=== PATIENT | female | born 1985 | race Asian ===

== ENCOUNTER 2018-04-27 23:43 | Emergency (ER) | payer SELFPAY, OTHER | END 2018-04-28 03:02 | disposition left against medical advice (07) | LOC: FTE 23:43 | DX: Z53.21 Procedure and treatment not carried out due to patient leaving prior to being seen by health care provider (principal) ==

== ENCOUNTER 2018-05-10 15:12 | Outpatient (CLI) | payer OTHER | END 2018-05-10 16:45 | disposition home or self-care (01) | LOC: OBT 15:12 → L-D 15:13 → OBT 16:45 | DX: O26.892 Other specified pregnancy related conditions, second trimester (principal); R10.2 Pelvic and perineal pain; O13.3 Gestational [pregnancy-induced] hypertension without significant proteinuria, third trimester; Z3A.21 21 weeks gestation of pregnancy ==

== ENCOUNTER 2018-07-09 15:58 | Outpatient (CLI) | payer OTHER ==
[2018-07-09 16:27] LABS: ADD MAN DIFF? NO
[2018-07-09 16:30] LABS: WHITE BLOOD COUNT 7.5 10^3/ul (4.8-10.8)
[2018-07-09 16:30] LABS: BASOPHILS % 0.4 % (0.0-2.0); EOSINOPHILS # 0.1 10^3/ul (0.0-0.5); EOSINOPHILS % 1.5 % (0.0-7.0); HEMATOCRIT 34.2 % (37.0-47.0); HEMOGLOBIN 11.4 g/dl (12.0-16.0); LYMPHOCYTES % 13.3 % (15.0-51.0); MEAN CORPUSCULAR HEMOGLOBIN 29.8 pg (29.0-33.0); MEAN CORPUSCULAR HGB CONC 33.3 g/dl (32.0-37.0); MEAN CORPUSCULAR VOLUME 89.3 fl (82.0-101.0); MONOCYTE # 0.6 10^3/ul (0.3-0.9); MONOCYTES % 7.4 % (0.0-11.0); NEUTROPHIL # 5.8 10^3/ul (1.6-7.5); NEUTROPHILS % 76.9 % (39.0-77.0); PLATELET COUNT 212 10^3/UL (140-415); RED BLOOD COUNT 3.83 10^6/ul (4.20-5.40); RED CELL DISTRIBUTION WIDTH 13.7 % (11.5-14.5)
[2018-07-09 16:38] LABS: ADD UMIC NO; UR ASCORBIC ACID NEGATIVE (NEGATIVE); UR BACTERIA FEW /HPF (NONE SEEN); UR BILIRUBIN (Dip) NEGATIVE (NEGATIVE); UR BLOOD (Dip) NEGATIVE (NEGATIVE); UR CLARITY SLIGHTLY CLOUDY (CLEAR); UR COLOR YELLOW (YELLOW); UR GLUCOSE (Dip) NEGATIVE (NEGATIVE); UR KETONES (Dip) NEGATIVE (NEGATIVE); UR LEUKOCYTE ESTERASE (Dip) NEGATIVE Leu/ul (NEGATIVE); UR NITRITE (Dip) NEGATIVE (NEGATIVE); UR RBC 0 /HPF (0-5); UR SPECIFIC GRAVITY (Dip) 1.005 (1.003-1.030); UR SQUAMOUS EPITHELIAL CELL FEW /HPF (FEW); UR TOTAL PROTEIN (Dip) NEGATIVE (NEGATIVE); UR UROBILINOGEN (Dip) NEGATIVE (NEGATIVE); UR WBC 2 /HPF (0-5)
[2018-07-09 16:48] LABS: ALANINE AMINOTRANSFERASE 95 IU/L (13-69); ALBUMIN/GLOBULIN RATIO 1.08; ALKALINE PHOSPHATASE 89 IU/L (42-121); ANION GAP 13 (5-13); ASPARTATE AMINO TRANSFERASE 63 IU/L (15-46); BILIRUBIN,INDIRECT 0.2 mg/dl (0-1.1); BILIRUBIN,TOTAL 0.2 mg/dl (0.2-1.3); BLOOD UREA NITROGEN 7 mg/dl (7-20); CALCIUM 9.1 mg/dl (8.4-10.2); CARBON DIOXIDE 25 mmol/L (21-31); CHLORIDE 103 mmol/L (97-110); CREATININE 0.42 mg/dl (0.44-1.00); Estimated GFR > 60 mL/min (>60); GLUCOSE 84 mg/dl (70-220); POTASSIUM 3.4 mmol/L (3.5-5.1); SODIUM 141 mmol/L (135-144); TOTAL PROTEIN 7.7 g/dl (6.1-8.1)
[2018-07-09 17:06] LABS: INR 0.89; PROTIME 12.2 Sec (11.9-14.9)
[2018-07-09 17:07] LABS: PARTIAL THROMBOPLASTIN TIME 26.4 Sec (23.0-35.0)
== END 2018-07-09 17:29 | disposition home or self-care (01) ==
LOC: OBT 15:58 → L-D 15:59 → OBT 17:29
DX: O13.3 Gestational [pregnancy-induced] hypertension without significant proteinuria, third trimester (principal); Z3A.29 29 weeks gestation of pregnancy
CPT/HCPCS: 76818; 80053; 81001; 81003; 84560; 85025; 85610; 85730

== ENCOUNTER 2018-07-10 15:50 | Outpatient (CLI) | payer OTHER ==
[2018-07-10 17:38] LABS: ADD MAN DIFF? NO
[2018-07-10 17:39] LABS: WHITE BLOOD COUNT 8.7 10^3/ul (4.8-10.8)
[2018-07-10 17:39] LABS: BASOPHILS % 0.2 % (0.0-2.0); EOSINOPHILS % 0.2 % (0.0-7.0); HEMATOCRIT 33.9 % (37.0-47.0); HEMOGLOBIN 11.6 g/dl (12.0-16.0); LYMPHOCYTES # 1.1 10^3/ul (0.8-2.9); MEAN CORPUSCULAR HEMOGLOBIN 30.1 pg (29.0-33.0); MEAN CORPUSCULAR HGB CONC 34.2 g/dl (32.0-37.0); MEAN CORPUSCULAR VOLUME 88.1 fl (82.0-101.0); MEAN PLATELET VOLUME 11.8 fl (7.4-10.4); MONOCYTE # 0.6 10^3/ul (0.3-0.9); MONOCYTES % 6.5 % (0.0-11.0); NEUTROPHILS % 80.4 % (39.0-77.0); PLATELET COUNT 216 10^3/UL (140-415); RED BLOOD COUNT 3.85 10^6/ul (4.20-5.40); RED CELL DISTRIBUTION WIDTH 13.7 % (11.5-14.5)
[2018-07-10] MEDS: ACETAMINOPHEN 500 MG TAB PO (17:40)
[2018-07-10 18:02] LABS: ALANINE AMINOTRANSFERASE 125 IU/L (13-69); ALBUMIN/GLOBULIN RATIO 1.14; ALKALINE PHOSPHATASE 89 IU/L (42-121); ANION GAP 10 (5-13); ASPARTATE AMINO TRANSFERASE 84 IU/L (15-46); BILIRUBIN,INDIRECT 0.2 mg/dl (0-1.1); BILIRUBIN,TOTAL 0.2 mg/dl (0.2-1.3); BLOOD UREA NITROGEN 5 mg/dl (7-20); CALCIUM 9.8 mg/dl (8.4-10.2); CARBON DIOXIDE 25 mmol/L (21-31); CHLORIDE 103 mmol/L (97-110); CREATININE 0.42 mg/dl (0.44-1.00); Estimated GFR > 60 mL/min (>60); GLUCOSE 85 mg/dl (70-220); POTASSIUM 3.1 mmol/L (3.5-5.1); SODIUM 138 mmol/L (135-144); TOTAL PROTEIN 7.5 g/dl (6.1-8.1); URIC ACID 3.1 mg/dl (3.1-7.9)
[2018-07-10 19:31] LABS: COLLECTION PERIOD 24 hrs
[2018-07-10 20:33] LABS: COLLECTION PERIOD 24 hrs; CREATININE CLEARANCE 124.4 mls/min (84.0-162.0); CREATININE,URINE RANDOM 16.35 mg/dl (20-320); SCRET 0.42 mg/dl (0.44-1.00); VOLUME 4600 ml/24hrs; VOLUME 4600 mls
[2018-07-10 20:34] LABS: 24HR URINE TOTAL PROTEIN > 600.0 mg/24hrs (42.0-225.0)
[2018-07-10] MEDS: BETAMET NA PHOS/AC(6 MG/ML) 2 ML INJ SYG IM (22:49)
== END 2018-07-10 22:50 | disposition home or self-care (01) ==
LOC: OBT 15:50 → L-D 15:51 → OBT 18:20 → L-D 18:20 → OBT 22:50
DX: O13.3 Gestational [pregnancy-induced] hypertension without significant proteinuria, third trimester (principal); Z3A.29 29 weeks gestation of pregnancy
CPT/HCPCS: 76818; 80053; 82575; 84156; 84560; 85025; 96372

== ENCOUNTER 2018-07-11 21:43 | Outpatient (CLI) | payer OTHER ==
[2018-07-11] MEDS: BETAMET NA PHOS/AC(6 MG/ML) 2 ML INJ SYG IM (22:15)
[2018-07-11 22:58] LABS: ADD MAN DIFF? NO
[2018-07-11 23:02] LABS: BASOPHILS % 0.2 % (0.0-2.0); EOSINOPHILS % 0.1 % (0.0-7.0); HEMATOCRIT 33.2 % (37.0-47.0); HEMOGLOBIN 11.3 g/dl (12.0-16.0); LYMPHOCYTES # 1.4 10^3/ul (0.8-2.9); LYMPHOCYTES % 10.8 % (15.0-51.0); MEAN CORPUSCULAR HEMOGLOBIN 29.8 pg (29.0-33.0); MEAN CORPUSCULAR VOLUME 87.6 fl (82.0-101.0); MEAN PLATELET VOLUME 11.5 fl (7.4-10.4); MONOCYTE # 0.8 10^3/ul (0.3-0.9); MONOCYTES % 5.8 % (0.0-11.0); NEUTROPHIL # 10.6 10^3/ul (1.6-7.5); NEUTROPHILS % 82.3 % (39.0-77.0); PLATELET COUNT 233 10^3/UL (140-415); RED BLOOD COUNT 3.79 10^6/ul (4.20-5.40); RED CELL DISTRIBUTION WIDTH 13.7 % (11.5-14.5)
[2018-07-11 23:02] LABS: WHITE BLOOD COUNT 12.9 10^3/ul (4.8-10.8)
[2018-07-11 23:12] LABS: ADD UMIC NO; UR ASCORBIC ACID NEGATIVE (NEGATIVE); UR BILIRUBIN (Dip) NEGATIVE (NEGATIVE); UR BLOOD (Dip) NEGATIVE (NEGATIVE); UR CLARITY CLEAR (CLEAR); UR COLOR STRAW (YELLOW); UR GLUCOSE (Dip) NEGATIVE (NEGATIVE); UR KETONES (Dip) NEGATIVE (NEGATIVE); UR LEUKOCYTE ESTERASE (Dip) NEGATIVE Leu/ul (NEGATIVE); UR NITRITE (Dip) NEGATIVE (NEGATIVE); UR SPECIFIC GRAVITY (Dip) 1.003 (1.003-1.030); UR TOTAL PROTEIN (Dip) NEGATIVE (NEGATIVE); UR UROBILINOGEN (Dip) NEGATIVE (NEGATIVE)
[2018-07-11 23:24] LABS: INR 0.93; PARTIAL THROMBOPLASTIN TIME 24.7 Sec (23.0-35.0); PROTIME 12.6 Sec (11.9-14.9)
[2018-07-11 23:30] LABS: ALANINE AMINOTRANSFERASE 183 IU/L (13-69); ALBUMIN 3.9 g/dl (3.3-4.9); ALBUMIN/GLOBULIN RATIO 1.14; ALKALINE PHOSPHATASE 97 IU/L (42-121); ANION GAP 8 (5-13); ASPARTATE AMINO TRANSFERASE 108 IU/L (15-46); BILIRUBIN,INDIRECT 0.3 mg/dl (0-1.1); BILIRUBIN,TOTAL 0.3 mg/dl (0.2-1.3); BLOOD UREA NITROGEN 5 mg/dl (7-20); CALCIUM 9.4 mg/dl (8.4-10.2); CARBON DIOXIDE 26 mmol/L (21-31); CHLORIDE 103 mmol/L (97-110); CREATININE 0.39 mg/dl (0.44-1.00); Estimated GFR > 60 mL/min (>60); GLUCOSE 106 mg/dl (70-220); POTASSIUM 3.1 mmol/L (3.5-5.1); SODIUM 137 mmol/L (135-144); TOTAL PROTEIN 7.3 g/dl (6.1-8.1); URIC ACID 3.3 mg/dl (3.1-7.9)
== END 2018-07-12 00:27 | disposition left against medical advice (07) ==
LOC: OBT 07-12 00:27 → L-D 21:43
DX: Z53.21 Procedure and treatment not carried out due to patient leaving prior to being seen by health care provider (principal)
CPT/HCPCS: 80053; 81003; 84560; 85025; 85384; 85610; 85730

== ENCOUNTER 2018-07-13 07:24 | Inpatient (IN) | payer OTHER ==
[~2018-07-13 07:24] MED LIST: PROPOFOL 200 MG INJ
[2018-07-13 08:05] LABS: COLLECTION PERIOD 24 hrs
[2018-07-13 08:07] LABS: ADD MAN DIFF? NO
[2018-07-13 08:10] LABS: WHITE BLOOD COUNT 11.5 10^3/ul (4.8-10.8)
[2018-07-13 08:10] LABS: BASOPHILS % 0.3 % (0.0-2.0); EOSINOPHILS % 0.2 % (0.0-7.0); HEMATOCRIT 32.1 % (37.0-47.0); HEMOGLOBIN 10.9 g/dl (12.0-16.0); LYMPHOCYTES # 1.9 10^3/ul (0.8-2.9); LYMPHOCYTES % 16.6 % (15.0-51.0); MEAN CORPUSCULAR HEMOGLOBIN 29.8 pg (29.0-33.0); MEAN CORPUSCULAR VOLUME 87.7 fl (82.0-101.0); MEAN PLATELET VOLUME 11.8 fl (7.4-10.4); MONOCYTE # 0.9 10^3/ul (0.3-0.9); MONOCYTES % 8.1 % (0.0-11.0); NEUTROPHIL # 8.5 10^3/ul (1.6-7.5); NEUTROPHILS % 73.3 % (39.0-77.0); PLATELET COUNT 223 10^3/UL (140-415); RED BLOOD COUNT 3.66 10^6/ul (4.20-5.40); RED CELL DISTRIBUTION WIDTH 13.5 % (11.5-14.5)
[2018-07-13 08:13] LABS: UR BILIRUBIN (Dip) NEGATIVE (NEGATIVE); UR BLOOD (Dip) NEGATIVE (NEGATIVE); UR CLARITY CLEAR (CLEAR); UR COLOR STRAW (YELLOW); UR GLUCOSE (Dip) NEGATIVE (NEGATIVE); UR KETONES (Dip) NEGATIVE (NEGATIVE); UR TOTAL PROTEIN (Dip) NEGATIVE (NEGATIVE); URINE SPECIFIC GRAVITY (Dip) 1.005 (1.003-1.030)
[2018-07-13 08:14] LABS: ADD UMIC NO; UR ASCORBIC ACID NEGATIVE (NEGATIVE); UR BACTERIA FEW /HPF (NONE SEEN); UR LEUKOCYTE ESTERASE (Dip) NEGATIVE Leu/ul (NEGATIVE); UR NITRITE (Dip) NEGATIVE (NEGATIVE); UR RBC 1 /HPF (0-5); UR UROBILINOGEN (Dip) NEGATIVE (NEGATIVE); UR WBC 0 /HPF (0-5)
[2018-07-13 08:34] LABS: CREATININE 0.41 mg/dl (0.44-1.00)
[2018-07-13 08:34] LABS: ALANINE AMINOTRANSFERASE 260 IU/L (13-69); ALBUMIN 3.6 g/dl (3.3-4.9); ALBUMIN/GLOBULIN RATIO 1.16; ALKALINE PHOSPHATASE 85 IU/L (42-121); ANION GAP 10 (5-13); ASPARTATE AMINO TRANSFERASE 134 IU/L (15-46); BILIRUBIN,INDIRECT 0.3 mg/dl (0-1.1); BILIRUBIN,TOTAL 0.3 mg/dl (0.2-1.3); BLOOD UREA NITROGEN 6 mg/dl (7-20); CALCIUM 8.9 mg/dl (8.4-10.2); CARBON DIOXIDE 24 mmol/L (21-31); CHLORIDE 105 mmol/L (97-110); CREATININE 0.37 mg/dl (0.44-1.00); Estimated GFR > 60 mL/min (>60); GLUCOSE 99 mg/dl (70-220); POTASSIUM 3.1 mmol/L (3.5-5.1); SODIUM 139 mmol/L (135-144); TOTAL PROTEIN 6.7 g/dl (6.1-8.1); URIC ACID 3.4 mg/dl (3.1-7.9)
[2018-07-13 08:43] LABS: INR 0.91; PROTIME 12.4 Sec (11.9-14.9)
[2018-07-13 08:44] LABS: PARTIAL THROMBOPLASTIN TIME 23.3 Sec (23.0-35.0)
[2018-07-13 09:08] LABS: CREATININE,URINE RANDOM 20.08 mg/dl (20-320)
[2018-07-13 09:16] LABS: COLLECTION PERIOD 24 hrs; SCRET 0.37 mg/dl (0.44-1.00)
[2018-07-13 09:17] LABS: CREATININE CLEARANCE 226.1 mls/min (84.0-162.0); VOLUME 6000 ml/24hrs
[2018-07-13 09:19] LABS: VOLUME 6000 mls
[2018-07-13] MEDS: BETAMET NA PHOS/AC(6 MG/ML) 2 ML INJ SYG IM (11:20)
[2018-07-13] MEDS: ACETAMINOPHEN 325 MG TAB PO (13:19)
[2018-07-13] MEDS ORDERED: MISOPROSTOL 200 MCG TAB PR (15:30)
[2018-07-13] MEDS ORDERED: METHYLERGONOVINE 0.2 MG INJ IM (15:30)
[2018-07-13] MEDS ORDERED: CARBOPROST 250 MCG INJ IM (15:30)
[2018-07-13] MEDS ORDERED: CEFAZOLIN 2 GM/50 ML (PMX) 50 ML IVPB (15:30)
[2018-07-13] MEDS ORDERED: OXYTOCIN 30 UNITS/LR 500 ML IV (15:30)
[2018-07-13 16:00] LABS: PARTIAL THROMBOPLASTIN TIME 23.2 Sec (23.0-35.0); PROTIME 12.3 Sec (11.9-14.9)
[2018-07-13] MEDS: LACTATED RINGER'S 1,000 ML IV (16:25)
[2018-07-13 16:36] LABS: HEPATITIS B SURFACE ANTIGEN NEGATIVE (NEGATIVE)
[2018-07-13 19:26] LABS: RAPID PLASMA REAGIN NONREACTIVE (NR)
[2018-07-13] MEDS: ONDANSETRON 4 MG INJ IV (21:48)
[2018-07-13] MEDS: METOCLOPRAMIDE 10 MG INJ IV (21:48)
[2018-07-13] MEDS: FAMOTIDINE 20 MG INJ IV (21:48)
[2018-07-13] MEDS ORDERED: hydrALAzine 20 MG INJ IV (22:00)
[2018-07-13] MEDS ORDERED: FENTAnyl 50 MCG/ML VIAL IV ×2 (22:00)
[2018-07-13] MEDS ORDERED: LABETALOL HCL 20MG INJ IV (22:00)
[2018-07-13] MEDS ORDERED: DIPHENHYDRAMINE 50 MG INJ IV (22:00)
[2018-07-13] MEDS ORDERED: ZOLPIDEM 5 MG TAB PO (22:00)
[2018-07-13] MEDS ORDERED: ONDANSETRON 4 MG INJ IV ×2 (22:00)
[2018-07-13] MEDS ORDERED: HYDROmorphONE 0.5 MG/0.5 ML SYG IV ×2 (22:00)
[2018-07-13] MEDS ORDERED: NALOXONE (0.4 MG/ML) INJ IV (22:00)
[2018-07-13] MEDS ORDERED: HYDROmorphONE 1 MG/5 ML IV SYRINGE IV ×3 (22:00)
[2018-07-13] MEDS ORDERED: KETOROLAC 30 MG INJ IV (22:00)
[2018-07-13] MEDS ORDERED: OXYTOCIN 10 UNIT INJ ×2 (22:01)
[2018-07-13] MEDS ORDERED: morphine SULFATE/PF (10 MG/10 ML) INJ (22:01)
[2018-07-13] MEDS ORDERED: FENTAnyl 50 MCG/ML VIAL ×2 (22:42→22:58)
[2018-07-13] MEDS ORDERED: MIDAZOLAM 1 MG/ML 2 ML INJ (22:57)
[2018-07-13] MEDS ORDERED: LABETALOL HCL 20MG INJ (23:00)
[2018-07-14] MEDS: DIPHENHYDRAMINE 50 MG INJ IV (00:53)
[2018-07-14] MEDS: OXYTOCIN 30 UNITS/LR 500 ML IV (00:55)
[2018-07-14] MEDS: KETOROLAC 30 MG INJ IV ×4 (01:44→21:00)
[2018-07-14] MEDS: LACTATED RINGER'S 1,000 ML IV ×4 (02:45→17:51)
[2018-07-14] MEDS ORDERED: LACTATED RINGER'S 1,000 ML IV (02:55)
[2018-07-14] MEDS ORDERED: OXYTOCIN 30 UNITS/LR 500 ML IV (03:00)
[2018-07-14] MEDS ORDERED: DIPHENHYDRAMINE 50 MG INJ IV (03:00)
[2018-07-14] MEDS ORDERED: MISOPROSTOL 200 MCG TAB PR (03:00)
[2018-07-14] MEDS ORDERED: ONDANSETRON 4 MG INJ IV (03:00)
[2018-07-14] MEDS ORDERED: METHYLERGONOVINE 0.2 MG INJ IM (03:00)
[2018-07-14] MEDS ORDERED: CARBOPROST 250 MCG INJ IM (03:00)
[2018-07-14] MEDS ORDERED: ZOLPIDEM 5 MG TAB PO (03:00)
[2018-07-14 08:20] LABS: ADD MAN DIFF? NO
[2018-07-14 08:25] LABS: BASOPHILS % 0.1 % (0.0-2.0); EOSINOPHILS % 0.2 % (0.0-7.0); HEMATOCRIT 29.7 % (37.0-47.0); HEMOGLOBIN 9.8 g/dl (12.0-16.0); LYMPHOCYTES # 1.5 10^3/ul (0.8-2.9); LYMPHOCYTES % 11.3 % (15.0-51.0); MEAN CORPUSCULAR HEMOGLOBIN 29.6 pg (29.0-33.0); MEAN CORPUSCULAR VOLUME 89.7 fl (82.0-101.0); MEAN PLATELET VOLUME 11.5 fl (7.4-10.4); MONOCYTE # 0.7 10^3/ul (0.3-0.9); MONOCYTES % 5.2 % (0.0-11.0); NEUTROPHIL # 10.8 10^3/ul (1.6-7.5); NEUTROPHILS % 82.5 % (39.0-77.0); PLATELET COUNT 205 10^3/UL (140-415); RED BLOOD COUNT 3.31 10^6/ul (4.20-5.40); RED CELL DISTRIBUTION WIDTH 13.6 % (11.5-14.5)
[2018-07-14] MEDS: SENNA/DOCUSATE NA (8.6MG/50MG) TAB PO ×2 (09:42→21:00)
[2018-07-14] MEDS: LANOLIN HPA 1 PKT TOP (11:23)
[2018-07-15] MEDS: IBUPROFEN 600 MG TAB PO ×5 (01:47→23:30)
[2018-07-15] MEDS: OXYCODONE/ACETAMINOPHEN (5/325) TAB PO ×4 (02:43→22:28)
[2018-07-15] MEDS: LACTATED RINGER'S 1,000 ML IV (07:33)
[2018-07-15] MEDS: SENNA/DOCUSATE NA (8.6MG/50MG) TAB PO ×2 (08:51→21:15)
[2018-07-15 09:12] LABS: ALANINE AMINOTRANSFERASE 218 IU/L (13-69); ALBUMIN 3.4 g/dl (3.3-4.9); ALKALINE PHOSPHATASE 81 IU/L (42-121); ANION GAP 10 (5-13); ASPARTATE AMINO TRANSFERASE 93 IU/L (15-46); BILIRUBIN,INDIRECT 0.5 mg/dl (0-1.1); BILIRUBIN,TOTAL 0.5 mg/dl (0.2-1.3); BLOOD UREA NITROGEN 6 mg/dl (7-20); CALCIUM 8.5 mg/dl (8.4-10.2); CARBON DIOXIDE 27 mmol/L (21-31); CHLORIDE 101 mmol/L (97-110); CREATININE 0.41 mg/dl (0.44-1.00); Estimated GFR > 60 mL/min (>60); GLUCOSE 85 mg/dl (70-220); SODIUM 138 mmol/L (135-144); TOTAL PROTEIN 6.8 g/dl (6.1-8.1)
[2018-07-16] MEDS: OXYCODONE/ACETAMINOPHEN (5/325) TAB PO ×2 (02:30→14:08)
[2018-07-16] MEDS: IBUPROFEN 600 MG TAB PO ×4 (05:32→23:29)
[2018-07-16] MEDS: SENNA/DOCUSATE NA (8.6MG/50MG) TAB PO ×2 (09:24→21:00)
[2018-07-16] MEDS: DIPHTH/TET/ACEL PERTUSS (ADULT) 0.5 ML VIAL IM* (11:49)
[2018-07-17] MEDS: OXYCODONE/ACETAMINOPHEN (5/325) TAB PO (02:40)
[2018-07-17] MEDS: IBUPROFEN 600 MG TAB PO ×2 (05:58→11:23)
[2018-07-17] MEDS: SENNA/DOCUSATE NA (8.6MG/50MG) TAB PO (09:03)
== END 2018-07-17 16:56 | disposition home or self-care (01) | DRG 786 ==
LOC: OBT 07:24 → L-D 07-14 → PP1 07-14 03:16 → OBT 10:21 → PP1 10:00 → L-D 21:29
PROC: 10D00Z1 Extraction of Products of Conception, Low, Open Approach (ICD-10-PCS; principal; 2018-07-13 22:00)
DX: O65.5 Obstructed labor due to abnormality of maternal pelvic organs (principal); O60.13X0 Preterm labor second trimester with preterm delivery third trimester, not applicable or unspecified; O34.211 Maternal care for low transverse scar from previous cesarean delivery; O14.14 Severe pre-eclampsia complicating childbirth; Z3A.39 39 weeks gestation of pregnancy; Z37.0 Single live birth
CPT/HCPCS: 76815; 76818; 80053; 81003; 82565; 82575; 84156; 84560; 85025; 85610; 85730; 86592; 86850; 86900; 86901; 87340; 88307; 90715; 99464

== ENCOUNTER 2018-07-19 13:56 | Emergency (ER) | payer SELFPAY, OTHER | END 2018-07-19 14:05 | disposition left against medical advice (07) | LOC: E/R 13:56 | DX: Z53.21 Procedure and treatment not carried out due to patient leaving prior to being seen by health care provider (principal) ==

== ENCOUNTER 2018-07-19 14:24 | Outpatient (CLI) | payer OTHER ==
[2018-07-19] MEDS: HYDROCODONE/APAP (5/325) TAB PO (15:35)
[2018-07-19 15:50] LABS: ADD MAN DIFF? NO
[2018-07-19 15:53] LABS: WHITE BLOOD COUNT 8.7 10^3/ul (4.8-10.8)
[2018-07-19 15:53] LABS: BASOPHILS % 0.3 % (0.0-2.0); EOSINOPHILS # 0.2 10^3/ul (0.0-0.5); EOSINOPHILS % 2.8 % (0.0-7.0); HEMATOCRIT 30.9 % (37.0-47.0); HEMOGLOBIN 10.1 g/dl (12.0-16.0); LYMPHOCYTES # 1.3 10^3/ul (0.8-2.9); LYMPHOCYTES % 15.4 % (15.0-51.0); MEAN CORPUSCULAR HEMOGLOBIN 29.5 pg (29.0-33.0); MEAN CORPUSCULAR HGB CONC 32.7 g/dl (32.0-37.0); MEAN CORPUSCULAR VOLUME 90.4 fl (82.0-101.0); MEAN PLATELET VOLUME 10.9 fl (7.4-10.4); MONOCYTE # 0.5 10^3/ul (0.3-0.9); NEUTROPHIL # 6.5 10^3/ul (1.6-7.5); NEUTROPHILS % 74.2 % (39.0-77.0); PLATELET COUNT 283 10^3/UL (140-415); RED BLOOD COUNT 3.42 10^6/ul (4.20-5.40); RED CELL DISTRIBUTION WIDTH 13.1 % (11.5-14.5)
[2018-07-19 15:59] LABS: ADD UMIC YES; UR ASCORBIC ACID NEGATIVE (NEGATIVE); UR BILIRUBIN (Dip) NEGATIVE (NEGATIVE); UR BLOOD (Dip) 1+ mg/dL (NEGATIVE); UR CLARITY CLEAR (CLEAR); UR COLOR STRAW (YELLOW); UR GLUCOSE (Dip) NEGATIVE (NEGATIVE); UR KETONES (Dip) NEGATIVE (NEGATIVE); UR LEUKOCYTE ESTERASE (Dip) NEGATIVE Leu/ul (NEGATIVE); UR NITRITE (Dip) NEGATIVE (NEGATIVE); UR RBC 1 /HPF (0-5); UR SPECIFIC GRAVITY (Dip) 1.003 (1.003-1.030); UR TOTAL PROTEIN (Dip) NEGATIVE (NEGATIVE); UR UROBILINOGEN (Dip) NEGATIVE (NEGATIVE); UR WBC 1 /HPF (0-5)
[2018-07-19 16:13] LABS: ALANINE AMINOTRANSFERASE 62 IU/L (13-69); ALBUMIN 3.5 g/dl (3.3-4.9); ALBUMIN/GLOBULIN RATIO 1.09; ALKALINE PHOSPHATASE 69 IU/L (42-121); ANION GAP 8 (5-13); ASPARTATE AMINO TRANSFERASE 23 IU/L (15-46); BILIRUBIN,INDIRECT 0.2 mg/dl (0-1.1); BILIRUBIN,TOTAL 0.2 mg/dl (0.2-1.3); BLOOD UREA NITROGEN 9 mg/dl (7-20); CARBON DIOXIDE 25 mmol/L (21-31); CHLORIDE 110 mmol/L (97-110); CREATININE 0.44 mg/dl (0.44-1.00); Estimated GFR > 60 mL/min (>60); GLUCOSE 95 mg/dl (70-220); POTASSIUM 3.9 mmol/L (3.5-5.1); SODIUM 143 mmol/L (135-144); TOTAL PROTEIN 6.7 g/dl (6.1-8.1); URIC ACID 2.8 mg/dl (3.1-7.9)
[2018-07-19 16:14] LABS: INR 0.89; PARTIAL THROMBOPLASTIN TIME 26.1 Sec (23.0-35.0); PROTIME 12.1 Sec (11.9-14.9); PT RATIO 0.9
[2018-07-19] MEDS: LABETALOL 100 MG TAB PO (16:20)
== END 2018-07-19 19:25 | disposition home or self-care (01) ==
LOC: OBT 14:24 → L-D 14:26 → OBT 19:25
DX: O13.3 Gestational [pregnancy-induced] hypertension without significant proteinuria, third trimester (principal); O14.93 Unspecified pre-eclampsia, third trimester; O26.893 Other specified pregnancy related conditions, third trimester; G89.18 Other acute postprocedural pain; O34.219 Maternal care for unspecified type scar from previous cesarean delivery; Z3A.30 30 weeks gestation of pregnancy
CPT/HCPCS: 36415; 80053; 81001; 84560; 85025; 85384; 85610; 85730

== ENCOUNTER 2018-07-22 23:49 | Emergency (ER) | payer OTHER ==
[2018-07-23 04:22] LABS: ADD MAN DIFF? NO; URINE BLOOD (Dip) POC Trace-intact (NEGATIVE); URINE GLUCOSE (Dip) POC Negative (NEGATIVE); URINE KETONES (Dip) POC Negative (NEGATIVE); URINE LEUKOCYTE EST (Dip) POC Negative (NEGATIVE); URINE NITRITE (Dip) POC Negative (NEGATIVE); URINE TOTAL PROTEIN POC Negative (NEGATIVE)
[2018-07-23 04:23] LABS: BASOPHILS % 0.3 % (0.0-2.0); EOSINOPHILS # 0.1 10^3/ul (0.0-0.5); EOSINOPHILS % 1.3 % (0.0-7.0); HEMATOCRIT 32.9 % (37.0-47.0); HEMOGLOBIN 10.9 g/dl (12.0-16.0); LYMPHOCYTES # 1.7 10^3/ul (0.8-2.9); LYMPHOCYTES % 19.9 % (15.0-51.0); MEAN CORPUSCULAR HEMOGLOBIN 29.3 pg (29.0-33.0); MEAN CORPUSCULAR HGB CONC 33.1 g/dl (32.0-37.0); MEAN CORPUSCULAR VOLUME 88.4 fl (82.0-101.0); MEAN PLATELET VOLUME 10.2 fl (7.4-10.4); MONOCYTE # 0.6 10^3/ul (0.3-0.9); MONOCYTES % 6.9 % (0.0-11.0); NEUTROPHIL # 6.2 10^3/ul (1.6-7.5); NEUTROPHILS % 71.3 % (39.0-77.0); PLATELET COUNT 327 10^3/UL (140-415); RED BLOOD COUNT 3.72 10^6/ul (4.20-5.40); RED CELL DISTRIBUTION WIDTH 12.9 % (11.5-14.5)
[2018-07-23 04:23] LABS: WHITE BLOOD COUNT 8.7 10^3/ul (4.8-10.8)
[2018-07-23 04:45] LABS: ALANINE AMINOTRANSFERASE 35 IU/L (13-69); ALBUMIN/GLOBULIN RATIO 1.17; ALKALINE PHOSPHATASE 79 IU/L (42-121); ANION GAP 10 (5-13); ASPARTATE AMINO TRANSFERASE 20 IU/L (15-46); BILIRUBIN,INDIRECT 0.3 mg/dl (0-1.1); BILIRUBIN,TOTAL 0.3 mg/dl (0.2-1.3); BLOOD UREA NITROGEN 7 mg/dl (7-20); CALCIUM 9.1 mg/dl (8.4-10.2); CARBON DIOXIDE 28 mmol/L (21-31); CHLORIDE 104 mmol/L (97-110); CREATININE 0.42 mg/dl (0.44-1.00); Estimated GFR > 60 mL/min (>60); GLUCOSE 93 mg/dl (70-220); LIPASE 50 U/L (23-300); POTASSIUM 3.2 mmol/L (3.5-5.1); SODIUM 142 mmol/L (135-144); TOTAL PROTEIN 7.4 g/dl (6.1-8.1)
[2018-07-23 04:47] LABS: INR 0.89; PROTIME 12.2 Sec (11.9-14.9)
[2018-07-23 04:48] LABS: PARTIAL THROMBOPLASTIN TIME 23.2 Sec (23.0-35.0)
[2018-07-23] MEDS: POTASSIUM CHLORIDE (SR) 20 MEQ TAB PO (05:38)
== END 2018-07-23 05:48 | disposition home or self-care (01) ==
LOC: E/R 23:49
DX: I10 Essential (primary) hypertension (principal); D64.9 Anemia, unspecified; E87.6 Hypokalemia; R40.2142 Coma scale, eyes open, spontaneous, at arrival to emergency department; R40.2362 Coma scale, best motor response, obeys commands, at arrival to emergency department; R40.2252 Coma scale, best verbal response, oriented, at arrival to emergency department
CPT/HCPCS: 36415; 80053; 81003; 83690; 85025; 85610; 85730; 99283